=== PATIENT | female | born 1955 | race Caucasian/White ===

== ENCOUNTER 2022-08-21 07:27 | Outpatient (CLI) | payer MEDICARE, SELFPAY ==
[2022-08-21 12:42] LABS: Cholesterol* 229 mg/dL (90-199); Triglycerides* 142 mg/dL (40-149)
[2022-08-21 12:43] LABS: HDL Cholesterol* 75 mg/dL (>=50); LDL Cholesterol Calculated 126 mg/dL (<100)
== END 2022-08-21 07:28 | disposition home or self-care (01) ==
LOC: NFLDREF 07:27
PROVIDERS: PCP Internal Medicine; Visit Provider Internal Medicine
DX: Z13.6 Encounter for screening for cardiovascular disorders (principal)
CPT/HCPCS: 80061

== ENCOUNTER 2022-09-08 12:36 | Outpatient (CLI) | payer MEDICARE, SELFPAY ==
--- NOTE | 2022-09-08 13:00 | CRLHL7_ITS ---
For Patients: As a result of the Century Cures Act, medical imaging exams and procedure reports are released immediately into your electronic medical record. You may view this report before your referring provider. If you have questions, please contact your health care provider. BILATERAL SCREENING MAMMOGRAM WITH COMPUTER-AIDED DETECTION AND TOMOSYNTHESIS TECHNIQUE: CC and MLO views were obtained. These mammographic images have been obtained using full-field digital technique. These mammographic images were interpreted with the benefit of computer-aided detection. Breast Tomosynthesis was used in this interpretation. COMPARISON FILM: 09/06/21, 09/05/20, 07/29/19. FINDINGS: The breasts are heterogeneously dense, which may obscure small masses IMPRESSION: There is no radiographic evidence for malignancy. ASSESSMENT: BI-RADS Category 1: Negative RECOMMENDATION: Routine screening mammogram in 1 year. A lay language report of this examination will be provided to the patient. Christofer Beebe M.D. Diagnostic Radiologist [email or web address] JAYJAY/Dictated by: Christofer Beebe MD @ 09/09/2022 12:02:00 PM (Electronically Signed)
== END 2022-09-08 12:37 | disposition home or self-care (01) ==
LOC: MAMMO 12:37
PROVIDERS: PCP Internal Medicine; Visit Provider Internal Medicine
DX: Z12.31 Encounter for screening mammogram for malignant neoplasm of breast (principal); R92.2 Inconclusive mammogram
CPT/HCPCS: 77063; 77067

== ENCOUNTER 2023-08-24 07:45 | Outpatient (CLI) | payer MEDICARE, SELFPAY | END 2023-08-24 07:46 | disposition home or self-care (01) | LOC: NFLDREF 08-26 07:09 | PROVIDERS: PCP Internal Medicine; Referring Provider Internal Medicine; Visit Provider Internal Medicine | DX: E78.5 Hyperlipidemia, unspecified (principal) | CPT/HCPCS: 80061 ==

== ENCOUNTER 2023-09-09 12:44 | Outpatient (CLI) | payer MEDICARE, SELFPAY ==
--- NOTE | 2023-09-09 13:00 | CRLHL7_ITS ---
For Patients: As a result of the Century Cures Act, medical imaging exams and procedure reports are released immediately into your electronic medical record. You may view this report before your referring provider. If you have questions, please contact your health care provider. BILATERAL SCREENING MAMMOGRAM WITH COMPUTER-AIDED DETECTION AND TOMOSYNTHESIS TECHNIQUE: CC and MLO views were obtained. These mammographic images have been obtained using full-field digital technique. These mammographic images were interpreted with the benefit of computer-aided detection. Breast Tomosynthesis was used in this interpretation. COMPARISON FILM: 09/08/22, 09/06/21, 09/05/20. FINDINGS: The breasts are heterogeneously dense, which may obscure small masses IMPRESSION: There is no radiographic evidence for malignancy. ASSESSMENT: BI-RADS Category 1: Negative RECOMMENDATION: Routine screening mammogram in 1 year. A lay language report of this examination will be provided to the patient. Rosa Hoover M.D. Diagnostic/Breast Radiologist [email or web address] JAYJAY/Dictated by: Rosa Hoover MD @ 09/10/2023 11:19:00 AM (Electronically Signed)
== END 2023-09-09 12:45 | disposition home or self-care (01) ==
PROVIDERS: PCP Internal Medicine; Visit Provider Internal Medicine
DX: Z12.31 Encounter for screening mammogram for malignant neoplasm of breast (principal); R92.2 Inconclusive mammogram
CPT/HCPCS: 77063; 77067

== ENCOUNTER 2024-01-06 12:36 | Outpatient (CLI) | payer MEDICARE, SELFPAY ==
--- OUTSIDE RECORDS SUMMARY | 2024-01-06 12:38 | XMS_ITS | Clinical Summary ---
Author Name Unknown Organization [employer] [facility] [employer] Address [place], [place] [address] Care Team Providers Care Mechanic Recovery Name Role Phone Ana María Mcgee MD Unavailable Arlen Bajwa MD Primary Care Provider [phone]- [phone] Allergies Active Allergy Reactions Criticality Noted Date Comments Rosuvastatin Myalgia 08/15/2013 Atorvastatin Myalgia 05/03/2007 Lisinopril Cough Low 10/21/2010 Side effect, not allergy Sulfamethoxazole-Trimethopri m Hives 05/03/2007 Simvastatin Myalgia 08/15/2013 Medications Medication Sig Dispensed Refills Start Date End Date Status COQ10 SG 100 100 MG-100 UNIT CAPIndications:Myalgia and myositis, unspecified one capsule daily. may increase to twice dailhy 60 12 08/13/2009 Active MAGNESIUM 250 MG TAB 0 08/13/2009 Acti ve CPAPIndications:RAFAL (obstructive sleep apnea) As directed. CPAP, heated humidifier, mask, headgear, filters and tubing. For home use. Pressure: 9 cm Length of Need: 99 1 unit 0 07/15/2010 Active triamcinolone (ARISTOCORT; KENALOG) 0.1 % creamIndications:Conta ct dermatitis and other eczema due to plants (except food) Apply to affected areas BID prn 15 g 6 10/08/2012 Active docusate (COLACE) 100 mg capsule Take 1 capsule by mouth 2 times daily if needed for Constipation. 60 capsule 11/23/2012 Active aspirin enteric coated 81 mg tablet Take 1 tablet by mouth once daily with a meal. 0 08/15/2013 Active Cholecalciferol, Vitamin D3, 2,000 unit tablet Take 3 tablets by mouth once daily. 06/02/2016 Active ibuprofen (ADVIL) 200 mg tablet 3 tablets prn 0 06/02/2016 Active amLODIPine (NORVASC) 10 mg tabletIndications:Hype rtension Take 1 tablet by mouth once daily. 90 tablet 3 06/03/2016 Active pravastatin (PRAVACHOL) 10 mg tabletIndications:Hype rlipidemia, unspecified hyperlipidemia type TAKE ONE TABLET BY MOUTH AT BEDTIME 90 tablet 02/09/2017 Active Active Problems Problem Noted Date Diagnosed Date Rectocele 11/22/2012 Female stress incontinence 10/08/2012 RAFAL (obstructive sleep apnea) 07/16/2010 Elevated blood pressure read ing without diagnosis of hypertension 02/15/2010 Screen for colon cancer 07/02/2009 Overview: Colonoscopy 06/2009 normal repeat in 10 years Vitamin D deficiency 01/01/2009 Other and unspecified hyperlipidemia 05/03/2007 Pure hyperglyceridemia 05/03/2007 Insomnia, unspecified 05/03/2007 Excessive or frequent menstruation 05/03/2007 Immunizations Name Administration Dates Next Due Hepatitis A (Adult) 05/03/2007,09/07/2006 Influenza A (H1N1), Inactivated 07/30/2009 Influenza, IIV3 (Age >=3 years) 07/05/2012,07/22,05/22/2009,07/24/2008 Td (Age >=7 Years) 04/07/2005 Tdap 09/12/2011 Typhoid (injectable) 09/07/2006 Yellow Fever 09/07/2006 Zoster (Zostavax-ZVL, live) 07/18/2013 Family History Medical History Relation Name Comments Heart Disease Brother 1 heart attack a t age 46, alcoholic and smoked Hyperlipidemia Brother 2 Alcohol/Drug Brother 3 Hypertension Brother 4 Hypertension Brother 5 Allergies Daughter Hyperlipidemia Father Other Father parkinsons Arthritis Mother severe RA Hyperlipidemia Mother Hypertension Mother Heart Disease Other 1 Nephew d [place] at age 49 Cancer-breast Other 2 niece with ruth ann ast cancer & cousin Cancer-breast Paternal Grandmother Cancer Sister 1 from leukm [place] Genetic Sister 1 memory issues Cancer Sister 2 ovarian Hyperlipidemia Sister 3 everyone in f [place]- 12 siblings Relation Name Status Comments Brother 1 Brother 2 Brother 3 Brother 4 Brother 5 Daughter Father Mother Other 1 Other 2 Paternal Grandmother Sister 1 Sister 2 Sister 3 Social History Tobacco Use Types Packs/Day Years Used Date Smoking Tobacco: Never Smokeless Tobacco: Never Tobacco Cessation:Counseling Given: Yes Alcohol Use Standard Drinks/Week Comments Yes 0 (1 standard drink = 0.6 oz pur e alcohol) wine once in awhile Sex and Gender Information Value Date Recorded Sex Assigned at Not on file Gender Identity Not on file Sexual Orientation Not on file Obstetrics History Para Term AB IAB SAB Ectopic Multiple Livin g Live Births 3 2 2 1 1 2 Date Outcome GA Total Labor Labor/2nd/3rd Weight Sex Delivery Anes PTL Stephanie A1 A5 Name Cl in SAB Term Term Last Filed Vital Signs Vital Sign Reading Time Taken Comments Blood Pressure 128/82 06/02/2016 4:09 PM CDT Pulse 72 06/02/2016 4:09 PM CDT Temperature 36.8 ??C (98.2 ??F) 09/04/2014 2:50 PM CS T Respiratory Rate 16 06/02/2016 4:09 PM CDT Oxygen Saturation 98% 09/04/2014 2:50 PM ROVING CHANGER Inhaled Oxygen Concentration - - Weight 87.5 kg (193 lb) 06/02/2016 4:09 PM CDT Height 168 cm (5' 6.14) 06/02/2016 4:09 PM CDT Body Mass Index 31.02 06/02/2016 4:09 PM CDT Plan of Treatment Health Maintenance Due Date Last Done Comments Depression screening for age 12+ 1967 Hepatitis C screening for ag e 18-79 1973 Zoster (shingles) series for age 50+ (2 of 3) 09/12/2013 07/18/2013 Mammogram for age 45-75 10/17/2014 10/17/19 14, 09/27/2012, 09/08/2011, Additional history exists BMI (ht and wt on same day) for age 18+ 06/02/2017 06/02/2016 DEXA/DXA scan for age 65+ 2020 08/19/2010 Pneumococcal series for age 65+ (1 of 1 - PCV) 2020 Lipids for age 45-75 11/09/2020 11/09/2015, 11/06/2014, 12/12/2013, Additional history exists Tetanus booster 09/12/2021 09/12/2011, 04/07/2005 COVID-19 vaccine series ( - 2022-24 season) 2023 Influenza for age 65+ 05/22/2024 07/05/2012 , 07/22/2011, 07/30/2009, Additional history exists Colonoscopy through age 75 10/24/202910/24, 10/24/2019, 10/24/2019, Additional history exists Tdap Completed 09/12/2011 Procedures Procedure Name Priority Date/Time Associated Diagnosis Comments COLONOSCOPY SCREENING Routine 10/24/2019 12:00 PM ROVING CHANGER Screening for colon cancer LIPID PANEL W REFLEX MEASURED LDL Routine 11/09/2015 8:10 AM ROVING CHANGER Hyperlipidemia XR MAMMO BILAT SCREEN FFDM (IA) Routine 10/17/2013 10:14 AM ROVING CHANGER Other screening mammogram SCAN-BONE DENSITOMETRY DEXA 08/19/2010 12:00 AM ROVING CHANGER from Last 3 Months or Most Recently Relevant to Health Maintenance Results * COLONOSCOPY SCREENING (10/24/2019 12:00 PM ROVING CHANGER) Tio Jarrell MD GI PROCEDURE ORD * (ABNORMAL) LIPID PANEL W REFLEX MEASURED LDL (11/09/2015 8:10 AM ROVING CHANGER) CHOLESTEROL,TOTAL 230(H) 100 - 199 mg/dL 11/09/2015 8:43 AM ROVING CHANGER [facility] TRIGLYCERIDES 203(H) <150 mg/dL 11/09/2015 8:43 AM ROVING CHANGER [facility] HDL CHOLESTEROL 51 >40 mg/dL 11/09/2015 8:43 AM ROVING CHANGER [facility] NON-HDL CHOLESTEROL 179(H) <145 mg/dl 11/09/2015 8:43 AM ROVING CHANGER [facility] CHOL/HDL RATIO 4.51(H) <4.50 11/09/2015 8:43 AM ROVING CHANGER [facility] LDL CHOLESTEROL 138(H) <=130 mg/dL 11/09/2015 8:43 AM ROVING CHANGER [facility] PATIENT STATUS FASTING 11/09/2015 8:43 AM ROVING CHANGER [facility] Blood specimen (specimen) BLOOD SPECIMEN / Unknown Venipuncture / Unknown 11/09/2015 8:10 AM ROVING CHANGER 11/09/2015 8:10 AM ROVING CHANGER Ana María Mcgee MD CHEMISTRY [facility] [address] [place] [address], * XR MAMMO BILAT SCREEN FFDM (10/17/2013 10:14 AM ROVING CHANGER) Anatomical Region Laterality Modality BREASTS, Breast Left, Breast Right Bilateral Mammography Impressions 10/17/2013 12:19 PM ROVING CHANGER ??There is no radiographic evidence for malignancy. ??Recommend annual mammograms. A lay language report of this examination will be provided to the patient. MAMMOGRAM ASSESSMENT: ??ACR 1 Negative Narrative 10/17/2013 12:19 PM ROVING CHANGER XR MAMMO BILAT SCREEN FFDM [G0202.0] CLINICAL HISTORY: ??This is an asymptomatic 58 y.o. patient. INDICATION FOR EXAM: Mammogram Screening. TECHNIQUE: CC & MLO views were obtained. ??This digital study was evaluated with the assistance of Computer-Aided Detection. ?? COMPARISON FILM: Yes 09/27/12 [facility] 09/08/11 [facility] FINDINGS: ??Mammographically, the breast tissue is heterogeneously dense, which could obscure detection of small masses (approximately 51% - 75% glandular). There are no dominant masses, suspicious micro calcifications or areas of architectural distortion. Procedure Note Brannon Dubon DO - 10/17/2013 XR MAMMO BILAT SCREEN FFDM [G0202.0] CLINICAL HISTORY: This is an asymptomatic 58 y.o. patient. INDICATION FOR EXAM: Mammogram Screening. TECHNIQUE: CC & MLO views were obtained. This digital study was evaluatedwith the assistance of Computer-Aided Detection. COMPARISON FILM: Yes 09/27/12 [facility] 09/08/11 [facility] FINDINGS: Mammographically, the breast tissue is heterogeneously dense,which could obscure detection of small masses (approximately 51% - 75%glandular). There are no dominant masses, suspicious micro calcificationsor areas of architectural distortion. IMPRESSION: There is no radiographic evidence for malignancy. Recommendannual mammograms. A lay language report of this examination will be provided to the patient. MAMMOGRAM ASSESSMENT: ACR 1 Negative Wen Holland MEDICAL ILLUSTRATOR MAMMO * SCAN-BONE DENSITOMETRY DEXA (08/19/2010 12:00 AM ROVING CHANGER) Anatomical Region Laterality Modality Other Narrative Procedure Note Scanner - 08/19/2010 12:00 AM ROVING CHANGER Scanner OTHER from Last 3 Months or Most Recently Relevant to Health Maintenance Advance Directives * Full Code (Latest Code Status on File) Date Activated Date Inactivated Comments 11/22/2012 8:40 AM 11/23/2012 3:49 PM Care Teams Mechanic Recovery Relationship Specialty Start Date End Date Arlen Bajwa MD [address] [facility] [place] [address] PCP - General Internal Medicine 12/25/14 Ana María Mcgee MD Consulting Physician Cardiovascular Disease 08/15/13
--- NOTE | 2024-01-06 13:00 | XR_ITS ---
Patient: DOMEINCA PETERS Facility:?[facility] Patient ID:?[id number] Site Patient ID:?[id number]. Site :?[id number] Study:?DEXA-Bone Density -01/06/2024 2:03:30 PM Ordering Physician:MARIAM Final Report: DXA BONE MINERAL DENSITY STUDY Reason for exam: Asymptomatic menopausal state. Current height (in): 65. Weight (lb): 160. Menopause age: 56. Ethnicity: White. 1. Have you had a previous hip or vertebral fracture? No. 2. Have you had any fractures during your adult life which did not result from significant trauma (e.g., auto accident)? No. 3. Did either of your parents have a hip fracture? No. 4. Do you smoke? No. 5. Have you ever taken Glucocorticoids? No. 6. Do you have rheumatoid arthritis? No. 7. 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 Yes. 8. Do you drink 3 or more alcoholic drinks per day? No. 9. Are you being treated for osteoporosis? No. 10. Have you ever taken any of the following medications: Actonel, Evista, Fosamax, Miacalcin, Reclast, Boniva, Forteo, HRT (i.e., estrogen/hormone therapy), Protelos, Prolia, Vitamin D, Calcium, other ? please specify. ANSWER: Yes, vitamin D and calcium. 11. Do you have any of the following medical conditions: Anorexia or bulimia, asthma or emphysema, end stage renal disease, hyperparathyroidism, any seizure disorders, cancer, inflammatory bowel diseases, hysterectomy, other ? please specify. ANSWER: Yes, hysterectomy. 12. What was your maximum height (inches)? 66. 13. Do you perform weight bearing exercise regularly? Yes. 14. Do you regularly consume dairy products? Yes. 15. Do you drink caffeinated beverages? Yes. 16. At what age did your period start? 12. 17. Are you premenopausal? No. 18. How many full-term pregnancies have you had? 2. 19. Have you ever missed your period for more than 6 months in a row (not including or menopause)? No. TECHNIQUE: Bone mineral density study was performed using the [employer]. FINDINGS: The results of the study expressed as bone mineral density (BMD) are as follows: Lumbar spine L1 to L4: BMD: 0.980 g/cm2. T-score: -0.6. Z-score: 1.4 Neck Left: BMD: 0.822 g/cm2. T-score: -0.2. Z-score: 1.5 Right: BMD: 0.677 g/cm2. T-score: -1.5. Z-score: 0.2 Total Left: BMD: 0.873 g/cm2. T-score: -0.6. Z-score: 0.9 Right: BMD: 0.803 g/cm2. T-score: -1.1. Z-score: 0.3 IMPRESSION: Osteopenia. *Comparison exams done prior to 02/2020 were performed on different unit, [employer]. COMPARISON: Compared with scan of 08/19/2010, the bone mineral density has decreased by 8.3 percent at the spine and decreased by 7.8 percent at the hip. FRAX 10-year Fracture Risk Major Osteoporotic Fracture: 9.8% Hip Fracture: 1.3% Reported Risk Factors: [place] () Neck BMD=0.677, BMI=26.6, secondary osteoporosis Apolonia COSTELLO:miriam D& Transcribed: 12:28 p.m. [email or web address] miriam/Dictated by: Sage Peterson MD @ 01/07/2024 11:16:00 AM Signed by:Bernardino Peterson MD @01/07/2024 4:15:52 PM (Electronic Signature)
== END 2024-01-06 12:37 | disposition home or self-care (01) ==
LOC: RAD 12:36
PROVIDERS: PCP Internal Medicine; Visit Provider Internal Medicine
DX: Z78.0 Asymptomatic menopausal state (principal); M85.88 Other specified disorders of bone density and structure, other site
CPT/HCPCS: 77080

== ENCOUNTER 2024-08-25 07:36 | Outpatient (CLI) | payer MEDICARE, SELFPAY ==
--- OUTSIDE RECORDS SUMMARY | 2024-08-29 02:11 | XMS_ITS | Clinical Summary ---
Author Organization [employer] [facility] [employer] [facility] Address [place], [place] [address] Care Team Providers Care Shingler Name Role Phone Ana María Mcgee MD Unavailable Arlen Bajwa MD Primary Care Provider +1- [phone] Allergies Active Allergy Reactions Criticality Noted Date Comments Rosuvastatin Myalgia 08/15/2013 Atorvastatin Myalgia 05/03/2007 Lisinopril Cough Low 10/21/2010 Side effect, not allergy Sulfamethoxazole-Trimethopri m Hives 05/03/2007 Simvastatin Myalgia 08/15/2013 Medications COQ10 SG 100 100 MG-100 UNIT CAPIndications:Myal antonella and myositis, unspecified one capsule daily. may increase to twice dailhy 60 12 9 Active MAGNESIUM 250 MG TAB 0 9 Active CPAPIndications:RAFAL (obstructive sleep apnea) As directed. CPAP, heated humidifier, mask, headgear, filters and tubing. For home use. Pressure: 9 cm Length of Need: 99 1 unit 0 0 Active triamcinolone (ARISTOCORT; KENALOG) 0.1 % creamIndications:Co ntact dermatitis and other eczema due to plants (except food) Apply to affected areas BID prn 15 g 6 3 Active docusate (COLACE) 100 mg capsule Take 1 capsule by mouth 2 times daily if needed for Constipation . 60 capsule 11/23/2012 3:09 PM SUPERVISOR RESPIRATORY 3 Active aspirin enteric coated 81 mg tablet Take 1 tablet by mouth once daily with a meal. 0 3 Active Cholecalciferol, Vitamin D3, 2,000 unit tablet Take 3 tablets by mouth once daily. 6 Active ibuprofen (ADVIL) 200 mg tablet 3 tablets prn 0 6 Active amLODIPine (NORVASC) 10 mg tabletIndications:H ypertension Take 1 tablet by mouth once daily. 90 tablet 3 6 Active pravastatin (PRAVACHOL) 10 mg tabletIndications:H yperlipidemia, unspecified hyperlipidemia type TAKE ONE TABLET BY MOUTH AT BEDTIME 90 tablet 7 Active Active Problems Problem Noted Date Diagnosed Date Rectocele 11/22/2012 Female stress incontinence 10/08/2012 RAFAL (obstructive sleep apnea) 07/16/2010 Elevated blood pressure read ing without diagnosis of hypertension 02/15/2010 Screen for colon cancer 07/02/2009 Overview (07/02/2009): Colonoscopy 06/2009 normal repeat in 10 years [...] Mother Heart Disease Other 1 Nephew d [place] at age 49 Cancer-breast Other 2 niece [...] pur e alcohol) wine once in awhile Comments No Sex and Gender Information Value Date Recorded Sex Assigned at Not on file Legal Sex Female 5:26 AM SUPERVISOR RESPIRATORY Gender Identity Not on file Sexual Orientation Not on file Obstetrics History Para Term AB IAB SAB Ectopic Multiple Livin g Live Births 3 2 2 1 1 2 Date Outcome GA Total Labor Labor/2nd/3rd Weight Sex Type Anes PTL Stephanie A1 A5 Name Clin SAB Term Term Last Filed Vital Signs Vital Sign Reading Time Taken Comments Blood Pressure 128/82 06/02/2016 4:09 PM CDT Pulse 72 06/02/2016 4:09 PM CDT Temperature 36.8 C (98.2 F) 09/04/2014 2:50 PM SUPERVISOR RESPIRATORY Respiratory Rate 16 06/02/2016 4:09 PM CDT Oxygen Saturation 98% 09/04/2014 2:50 PM SUPERVISOR RESPIRATORY Inhaled Oxygen Concentration - - Weight 87.5 [...] booster 09/12/2021 09/12/2011, 04/07/2005 COVID-19 vaccine series (2023- season) 2024 Influenza for age 65+ 05/22/2024 07/05/2012 , 07/22/2011, 07/30/2009, Additional history exists Colonoscopy through age 75 10/24/202910/24, 10/24/2019, 10/24/2019, Additional history exists Tdap Completed 09/12/2011 Procedures Procedure Name Priority Date/Time Associated Diagnosis Comments COLONOSCOPY SCREENING Routine 10/24/2019 12:00 PM SUPERVISOR RESPIRATORY Screening for colon cancer LIPID PANEL W REFLEX MEASURED LDL Routine 11/09/2015 8:10 AM SUPERVISOR RESPIRATORY Hyperlipidemia XR MAMMO BILAT SCREEN FFDM (IA) Routine 10/17/2013 10:14 AM SUPERVISOR RESPIRATORY Other screening mammogram SCAN-BONE DENSITOMETRY DEXA 08/19/2010 12:00 AM SUPERVISOR RESPIRATORY from Last 3 Months or Most Recently Relevant to Health Maintenance Results * COLONOSCOPY SCREENING (10/24/2019 12:00 PM SUPERVISOR RESPIRATORY) us Tio Jarrell MD GI PROCEDURE ORD Final Re sult * (ABNORMAL) LIPID PANEL W REFLEX MEASURED LDL (11/09/2015 8:10 AM SUPERVISOR RESPIRATORY) CHOLESTEROL,TOTAL 230(H) 100 - 199 mg/dL 11/09/2015 8:43 AM SUPERVISOR RESPIRATORY [facility] TRIGLYCERIDES 203(H) <150 mg/dL 11/09/2015 8:43 AM SUPERVISOR RESPIRATORY [facility] HDL CHOLESTEROL 51 >40 mg/dL 11/09/2015 8:43 AM SUPERVISOR RESPIRATORY [facility] NON-HDL CHOLESTEROL 179(H) <145 mg/dl 11/09/2015 8:43 AM SUPERVISOR RESPIRATORY [facility] CHOL/HDL RATIO 4.51(H) <4.50 11/09/2015 8:43 AM SUPERVISOR RESPIRATORY [facility] LDL CHOLESTEROL 138(H) <=130 mg/dL 11/09/2015 8:43 AM SUPERVISOR RESPIRATORY [facility] PATIENT STATUS FASTING 11/09/2015 8:43 AM SUPERVISOR RESPIRATORY [facility] Blood specimen (specimen) BLOOD SPECIMEN / Unknown Venipuncture / Unknown 11/09/2015 8:10 AM SUPERVISOR RESPIRATORY 11/09/2015 8:10 AM SUPERVISOR RESPIRATORY us Ana María Mcgee MD CHEMISTRY Final Result [facility] [address] [place] [address], * XR MAMMO BILAT SCREEN FFDM (10/17/2013 10:14 AM SUPERVISOR RESPIRATORY) Anatomical Region Laterality Modality BREASTS, Breast Left, Breast Right Bilateral Mammography Impressions 10/17/2013 12:19 PM SUPERVISOR RESPIRATORY There is no radiographic evidence for malignancy. Recommend annual mammograms. A lay language report of this examination will be provided to the patient. MAMMOGRAM ASSESSMENT: ACR 1 Negative Narrative 10/17/2013 12:19 PM SUPERVISOR RESPIRATORY XR MAMMO BILAT SCREEN FFDM [G0202.0] CLINICAL HISTORY: This is an asymptomatic 58 y.o. patient. INDICATION FOR EXAM: Mammogram Screening. TECHNIQUE: CC & MLO views were obtained. This digital study was evaluated with the assistance of Computer-Aided Detection. COMPARISON FILM: Yes 09/27/12 [facility] 09/08/11 [facility] FINDINGS: Mammographically, the breast tissue is heterogeneously dense, which [...] of Computer-Aided Detection. COMPARISON FILM: Yes 09/27/12 [facility] 09/08/11 [facility] FINDINGS: Mammographically, the breast tissue is heterogeneously dense,which could obscure detection of small masses (approximately 51% - 75%glandular). There are no dominant masses, suspicious micro calcificationsor areas of architectural distortion. IMPRESSION: There is no radiographic evidence for malignancy. Recommendannual mammograms. A lay language report of this examination will be provided to the patient. MAMMOGRAM ASSESSMENT: ACR 1 Negative us Wen Holland NP MAMMO Final Result * SCAN-BONE DENSITOMETRY DEXA (08/19/2010 12:00 AM SUPERVISOR RESPIRATORY) Anatomical Region Laterality Modality Other Narrative Procedure Note Scanner - 08/19/2010 12:00 AM SUPERVISOR RESPIRATORY us Scanner OTHER Final Result from Last 3 Months or Most Recently Relevant to Health Maintenance Insurance [facility] Advance Directives * Full Code (Latest Code Status on File) Date Activated Date Inactivated Comments 11/22/2012 8:40 AM 11/23/2012 3:49 PM Care Teams Shingler Relationship Specialty Start Date End Date Arlen Bajwa MD [address] [place] [id number] PCP - General Internal Medicine 12/25/14 Ana María Mcgee MD Consulting Physician Cardiovascular Disease 08/15/13
== END 2024-08-25 07:37 | disposition home or self-care (01) ==
LOC: NFLDREF 08-29 02:08
PROVIDERS: PCP Internal Medicine; Referring Provider Internal Medicine; Visit Provider Internal Medicine
DX: E78.5 Hyperlipidemia, unspecified (principal)
CPT/HCPCS: 80061

== ENCOUNTER 2024-08-30 09:26 | Outpatient (CLI) | payer MEDICARE, SELFPAY ==
--- NOTE | 2024-08-30 09:15 | CRLHL7_ITS ---
For Patients: As a result of the Century Cures Act, medical imaging exams and procedure reports are released immediately into your electronic medical record. You may view this report before your referring provider. If you have questions, please contact your health care provider. CLINICAL INDICATION: Spontaneous rupture of extensor tendon of big toe. COMPARISON IMAGING STUDIES: Radiographs 08/26/2024. TECHNICAL: Noncontrast MRI of the right forefoot. Axial, sagittal and coronal T1, PD and STIR images. 1.5 Dana MR scanner. FINDINGS: OSSEOUS STRUCTURES: No acute fracture. No avascular necrosis or osteomyelitis. JOINT SPACES: Advanced degenerative arthrosis involving the 2nd through 5th TMT articulations with periarticular bone marrow edema. Advanced degenerative arthrosis of the navicular-1st cuneiform articulation. The MTP joints are maintained. Interphalangeal joints are maintained. TENDONS AND MUSCLES: The flexor tendons are intact. The extensor hallucis longus tendon is disrupted at the level of the 1st metatarsal base and 1st TMT joint space level and attenuated 2 at least the navicular level. This is noted on sagittal STIR image number 20 of series 7 with the tendon abnormal over an at least 3 centimeter longitudinal extent. There is associated fluid. The extensor tendons of the other toes are intact. Distal most anterior tibial tendon intact. No significant muscle atrophy. SOFT TISSUES: Plantar aponeurosis at the forefoot level is intact. No Luo`s neuroma. IMPRESSION: 1. Disruption of the extensor hallucis longus tendon at the TMT joint level and extending proximally to at least the navicular level. 2. Advanced degenerative arthrosis changes at the midfoot-forefoot junction and within the midfoot with subchondral cystic change and bone marrow edema. 3. No acute fracture. Dictated by Cm García MD @ 08/31/2024 7:28:26 AM (Electronically Signed)
--- OUTSIDE RECORDS SUMMARY | 2024-08-30 09:30 | XMS_ITS | Clinical Summary ---
Author Organization [facility] Address [place], [place] [address] Care Team Providers Care Dough Mixer Helper Name Role Phone Ana María Mcgee MD Unavailable Arlen Bajwa MD Primary Care Provider [phone] Allergies Active Allergy Reactions Criticality Noted Date [...] Constipation . 60 capsule 11/23/2012 3:09 PM CASEWORKER INTAKE 3 Active aspirin enteric coated 81 mg [...] Mother Heart Disease Other 1 Nephew d [place] at age 49 Cancer-breast Other 2 niece [...] on file Legal Sex Female 5:26 AM CASEWORKER INTAKE Gender Identity Not on file Sexual Orientation [...] 36.8 C (98.2 F) 09/04/2014 2:50 PM CASEWORKER INTAKE Respiratory Rate 16 06/02/2016 4:09 PM CDT Oxygen Saturation 98% 09/04/2014 2:50 PM CASEWORKER INTAKE Inhaled Oxygen Concentration - - Weight 87.5 [...] 09/12/2011, 04/07/2005 COVID-19 vaccine series ( - 2023- season) 2024 Influenza for age 65+ 05/22/2024 07/05/2012 , 07/22/2011, 07/30/2009, Additional history exists Colonoscopy through age 75 10/24/202910/24, 10/24/2019, 10/24/2019, Additional history exists RSV vaccine for adults or (1 - 1-dose 75+ series) 2030 Tdap Completed 09/12/2011 Procedures Procedure Name Priority Date/Time Associated Diagnosis Comments COLONOSCOPY SCREENING Routine 10/24/2019 12:00 PM CASEWORKER INTAKE Screening for colon cancer LIPID PANEL W REFLEX MEASURED LDL Routine 11/09/2015 8:10 AM CASEWORKER INTAKE Hyperlipidemia XR MAMMO BILAT SCREEN FFDM (IA) Routine 10/17/2013 10:14 AM CASEWORKER INTAKE Other screening mammogram SCAN-BONE DENSITOMETRY DEXA 08/19/2010 12:00 AM CASEWORKER INTAKE from Last 3 Months or Most Recently Relevant to Health Maintenance Results * COLONOSCOPY SCREENING (10/24/2019 12:00 PM CASEWORKER INTAKE) us Tio Jarrell MD GI PROCEDURE ORD Final Re sult * (ABNORMAL) LIPID PANEL W REFLEX MEASURED LDL (11/09/2015 8:10 AM CASEWORKER INTAKE) CHOLESTEROL,TOTAL 230(H) 100 - 199 mg/dL 11/09/2015 8:43 AM CASEWORKER INTAKE [facility] TRIGLYCERIDES 203(H) <150 mg/dL 11/09/2015 8:43 AM CASEWORKER INTAKE [facility] HDL CHOLESTEROL 51 >40 mg/dL 11/09/2015 8:43 AM CASEWORKER INTAKE [facility] NON-HDL CHOLESTEROL 179(H) <145 mg/dl 11/09/2015 8:43 AM CASEWORKER INTAKE [facility] CHOL/HDL RATIO 4.51(H) <4.50 11/09/2015 8:43 AM CASEWORKER INTAKE [facility] LDL CHOLESTEROL 138(H) <=130 mg/dL 11/09/2015 8:43 AM CASEWORKER INTAKE [facility] PATIENT STATUS FASTING 11/09/2015 8:43 AM CASEWORKER INTAKE [facility] Blood specimen (specimen) BLOOD SPECIMEN / Unknown Venipuncture / Unknown 11/09/2015 8:10 AM CASEWORKER INTAKE 11/09/2015 8:10 AM CASEWORKER INTAKE us Ana María Mcgee MD CHEMISTRY Final Result [facility] [address] [place] [address], * XR MAMMO BILAT SCREEN FFDM (10/17/2013 10:14 AM CASEWORKER INTAKE) Anatomical Region Laterality Modality BREASTS, Breast Left, Breast Right Bilateral Mammography Impressions 10/17/2013 12:19 PM CASEWORKER INTAKE There is no radiographic evidence for malignancy. Recommend annual mammograms. A lay language report of this examination will be provided to the patient. MAMMOGRAM ASSESSMENT: ACR 1 Negative Narrative 10/17/2013 12:19 PM CASEWORKER INTAKE XR MAMMO BILAT SCREEN FFDM [G0202.0] CLINICAL HISTORY: This is an asymptomatic 58 y.o. patient. INDICATION FOR EXAM: Mammogram Screening. TECHNIQUE: CC & MLO views were obtained. This digital study was evaluated with the assistance of Computer-Aided Detection. COMPARISON FILM: Yes 09/27/12 [facility] 09/08/11 [facility] FINDINGS: Mammographically, the breast tissue is heterogeneously [...] of Computer-Aided Detection. COMPARISON FILM: Yes 09/27/12 [facility] 09/08/11 [facility] FINDINGS: Mammographically, the breast tissue is heterogeneously [...] * SCAN-BONE DENSITOMETRY DEXA (08/19/2010 12:00 AM CASEWORKER INTAKE) Anatomical Region Laterality Modality Other Narrative Procedure Note Scanner - 08/19/2010 12:00 AM CASEWORKER INTAKE us Scanner OTHER Final Result from Last 3 Months or Most Recently Relevant to Health Maintenance Insurance [facility] Advance Directives * Full Code (Latest Code Status on File) Date Activated Date Inactivated Comments 11/22/2012 8:40 AM 11/23/2012 3:49 PM Care Teams Dough Mixer Helper Relationship Specialty Start Date End Date Arlen Bajwa MD [address] [place], [place] [id number] PCP - General Internal Medicine 12/25/14 Ana María Mcgee MD Consulting Physician Cardiovascular Disease 08/15/13
== END 2024-08-30 09:27 | disposition home or self-care (01) ==
LOC: MRI 09:28
PROVIDERS: PCP Internal Medicine; Visit Provider Podiatrist
DX: M66.271 Spontaneous rupture of extensor tendons, right ankle and foot (principal); S93.601A Unspecified sprain of right foot, initial encounter
CPT/HCPCS: 73718

== ENCOUNTER 2024-08-31 08:42 | Day surgery (SDC) | payer MEDICARE, SELFPAY ==
[2024-08-31] VITALS (16 sets, daily range): BP systolic 97–149; BP diastolic 67–85; PULSE 61–76; RESP 14–16; TEMP 36.4–37.2; O2SAT 93–97; BMI 26.7
--- NOTE | 2024-08-31 09:06 | SUR.PREOP ---
Dr. Guevara in with pt
[2024-08-31] MEDS: SODIUM CHLORIDE 0.9 % (FLUSH) 10 ML SYRINGE IVF (09:20)
[2024-08-31] MEDS: 0.9 % SODIUM CHLORIDE 500 ML 500 ML 100 ML IV ×2 (09:25→11:10)
[2024-08-31] MEDS: MIDAZOLAM HCL 1 MG/ML inj IVP (09:26)
[2024-08-31] MEDS: fentaNYL 100 MCG/2 ML inj IVP (09:26)
[2024-08-31] MEDS: BUPIVACAINE 0.25% 30 ML INJECTION (09:45)
[2024-08-31] MEDS: CEFAZOLIN 1 GM inj IVP (09:51)
--- NOTE | 2024-08-31 09:52 | P.NB_ITS ---
Nerve Block Nerve Block Time Seen by Provider: 09:30 Date Seen: 08/31/24 Type of block requested by surgeon for post-operative analgesia: popliteal Side: right Time out performed: Yes Verification of patient name: Yes Verification of date of : Yes Site marking: site marked Name of person performing procedure: Kristian Continuous monitoring Was continuous monitoring of O2 sat, B/P, shelter monitor, recorded every 15 minutes?: Yes Procedure Checklist: sterile prep, needles and gloves Ultrasound guided. Images saved: Yes Medications given in 5ml increments after negative aspiration: Marcaine %: 0.25 mL: 20 Needle gauge: 22 Patient tolerated procedure well: Yes Additional comments: Needle noted adjacent to nerve Block Charges Block Charge (with Pro Fee): Sciatic Nerve Use of Ultrasound Machine for Block: Yes- US Guidance/pain block
--- NOTE | 2024-08-31 09:53 | W.ANESCHARGE ---
Anesthesia Charges Start Date/Time Anesthesia Start Date: 08/31/24 Anesthesia Start Time: 09:36 Stop Date/Time Anesthesia Stop Date: 08/31/24 Anesthesia Stop Time: 11:49
--- NOTE | 2024-08-31 09:54 | SUR.PREOP ---
TIME?OUT:?09 PT/RN/MDA?VERIFICATION?OF?SURGICAL?SITE,?PROCEDURE,?AND?CONSENT OBTAINED?PRIOR?TO?INVASIVE?PROCEDURE. all in agreement.
--- NOTE | 2024-08-31 10:39 | CRLHL7_ITS ---
For Patients: As a result of the Cures Act, medical imaging exams and procedure reports are released immediately into your electronic medical record. You may view this report before your referring provider. If you have questions, please contact your health care provider. Indication: Tendon repair Technique: One fluoroscopic image of the midfoot submitted. Fluoroscopic time 2.4 seconds. IMPRESSION: Fluoroscopic guidance for tendon repair. Dictated by Christofer Beebe MD @ 08/31/2024 11:59:55 AM (Electronically Signed)
--- NOTE | 2024-08-31 11:43 | W.ANESCHARGE ---
Anesthesia Charges Start Date/Time Anesthesia Start Date: 08/31/24 Anesthesia Start Time: 09:36 Stop Date/Time Anesthesia Stop Date: 08/31/24 Anesthesia Stop Time: 11:49
--- NOTE | 2024-08-31 14:03 | SUR.PHASEII ---
pt tolerated yogurt and water. Denies pain. Right foot dressing c/d/i, elevated on 2 pillows, ice applied behind the knee. Reviewed d/c instructions with pt and . All questions answered. paper script for knee walker sent with pt. PT evaluation for walker before D/C home.
--- NOTE | 2024-08-31 14:09 | SUR.PHASEII ---
PT here to see pt.
--- NOTE | 2024-08-31 14:28 | SUR.PHASEII ---
Pt evaluated pt. Wheelchair out to car with .
--- NOTE | 2024-09-02 13:34 | W.PM.PODPROC ---
Date of Procedure: 08/31/24 Surgeon: Claudine Guevara DPM Co-Surgeon: Toan Maldonado DPM Pre-op Diagnosis: 1. Extensor hallucis longus tendon rupture, right foot 2. Hyperostosis 1st metatarsal base, right foot 3. Hyperostosis 2nd metatarsal base, right foot 4. Hyperostosis 3rd metatarsal base, right foot 5. Hyperostosis 1st cuneiform, right foot 6. Hyperostosis 2nd cuneiform, right foot 7. Hyperostosis 3rd cuneiform, right foot 8. Hyperostosis navicular, right foot Post-op Diagnosis: 1. Extensor hallucis longus tendon rupture, right foot 2. Hyperostosis 1st metatarsal base, right foot 3. Hyperostosis 2nd metatarsal base, right foot 4. Hyperostosis 3rd metatarsal base, right foot 5. Hyperostosis 1st cuneiform, right foot 6. Hyperostosis 2nd cuneiform, right foot 7. Hyperostosis 3rd cuneiform, right foot 8. Hyperostosis navicular, right foot Type of Procedure: 1. Extensor hallucis longus tendon rupture repair, right foot 2. Hyperostosis resection 1st metatarsal base, right foot 3. Hyperostosis resection 2nd metatarsal base, right foot 4. Hyperostosis resection 3rd metatarsal base, right foot 5. Hyperostosis resection 1st cuneiform, right foot 6. Hyperostosis resection 2nd cuneiform, right foot 7. Hyperostosis resection 3rd cuneiform, right foot 8. Hyperostosis resection navicular, right foot Procedure Description: The patient was identified prior to being brought into the operating room using their name and date of as identifiers. The intended surgical care plan was again reviewed in detail with the patient as well as the rationale for the surgery, the most common risks, complications, and expected recovery course. The patient was given the opportunity to ask questions which were answered to the best of our ability. The patient ultimately voiced no questions or concerns and agreed to proceed forward with the surgery as planned. Under mild sedation the patient was brought from the pre-operative holding area to the operating room and placed on the operating table in a supine position. A time out and briefing were performed per operating room protocol to confirm the correct patient, procedure and location. A well padded pneumatic tourniquet was then placed on the operative thigh. The operative lower extremity was then scrubbed, prepped and draped in the normal sterile fashion. The operative lower extremity was then elevated for exsanguination and the tourniquet was inflated to 325 mmHg. A lateral incision was placed over the midfoot from navicular to the 2nd metatarsal base. The incision was then carried through the subcutaneous tissues with care taken to identify, retract, and protect all vital structures and coagulate any bleeders as necessary. The EHL tendon had a complete rupture with a 3 cm gap spanning from the base of the 1st tarsometatarsal joint to the navicular. The diseased portion of the tendon stumps were then transected and removed. Next, a midfoot exostectomy was performed to address the sharp underlying osseous prominences over the first through third tarsometatarsal joints (TMTJ) and the naviculocuneiform joint (NCJ) 1-3. The periosteum was carefully reflected to expose the underlying bone and using a saw, osteotome, rongure. The bone surfaces were smoothed with a hand rasp, and any bony irregularities were corrected to alleviate any impingement or discomfort. Next, using the Krackow suture technique, the EHL tendon ends were mobilized and reapproximated using #2 Fiberwire and reinforced with absorbable sutures with the hallux held in maximum dorsiflexion. The tendon repair was tested for tension and integrity, ensuring full function was restored. The surgical site copiously irrigated with sterile saline. The deep tissues approximated with multiple buried absorbable sutures. The skin edges were then approximated with non-absorbable sutures. A postoperative dressing of xeroform, fluff sponges, ABDs, webril, Kerlix and an jones bandage was applied to the patient's operative lower extremity. A posterior splint was then applied to the patient's operative extremity. The patient appeared to tolerate both the procedure and anesthesia well. The patient was transferred from the operating room to the post anesthesia care unit with vital signs stable and vascular status intact to the operative lower extremity. All sponge and instrument counts were correct at the completion of the surgery as well as prior to closure of deep tissue and skin. Anesthesia: GETA Hemostasis: thigh (67 minutes) Estimated blood loss (mL): 15 Implants: none Specimens: none sent Disposition: same day
== END 2024-08-31 14:28 | disposition home or self-care (01) ==
LOC: OR 08:43
PROVIDERS: PCP Internal Medicine; Visit Provider Podiatrist
PROC: (CPT 27675; principal; 2024-08-31 09:45)
DX: S96.111A Strain of muscle and tendon of long extensor muscle of toe at ankle and foot level, right foot, initial encounter (principal); M85.871 Other specified disorders of bone density and structure, right ankle and foot; G89.18 Other acute postprocedural pain
CPT/HCPCS: 28208; 28104 ×2; 28100; 01470; 64445; 73620; 76000; 76942; 97116; 97161; J0665; J0690; J1100; J2250; J2405; J2704; J2710; J3010; J7030

== ENCOUNTER 2025-01-09 12:50 | Outpatient (CLI) | payer MEDICARE, SELFPAY ==
--- NOTE | 2025-01-09 13:00 | CRLHL7_ITS ---
For Patients: As a result of the Century Cures Act, medical imaging exams and procedure reports are released immediately into your electronic medical record. You may view this report before your referring provider. If you have questions, please contact your health care provider. INDICATION: BILATERAL SCREENING MAMMOGRAM, ASYMPTOMATIC 69 YEAR OLD FEMALE COMPARISON: 09/09/23, 09/08/22, 09/06/21 TECHNIQUE: CC and MLO views were obtained. These mammographic images have been obtained using full-field digital technique. These mammographic images were interpreted with the benefit of computer aided detection and tomosynthesis. BREAST COMPOSITION: The breasts are heterogeneously dense, which may obscure small masses. FINDINGS: No suspicious findings. ASSESSMENT: BI-RADS 1 Negative RECOMMENDATION: Annual screening mammogram. A lay language report of this examination will be provided to the patient. Dictated by: Christofer Beebe MD @ 01/10/2025 11:10:33 (Electronically Signed)
== END 2025-01-09 12:51 | disposition home or self-care (01) ==
LOC: MAMMO 12:50
PROVIDERS: PCP Internal Medicine; Visit Provider Internal Medicine
DX: Z12.31 Encounter for screening mammogram for malignant neoplasm of breast (principal); R92.333 Mammographic heterogeneous density, bilateral breasts
CPT/HCPCS: 77063; 77067

== ENCOUNTER 2025-03-23 08:52 | Outpatient (CLI) | payer MEDICARE, SELFPAY ==
--- NOTE | 2025-03-23 09:15 | CRLHL7_ITS ---
For Patients: As a result of the Century Cures Act, medical imaging exams and procedure reports are released immediately into your electronic medical record. You may view this report before your referring provider. If you have questions, please contact your health care provider. Indication: Right hip pain Comparison: 03/14/2025 Procedure : Informed consent was obtained. The site was marked. Time-out was performed. The skin of the right hip was cleansed with ChloraPrep. A sterile drape was placed. 8 cc of 1 percent lidocaine was administered for superficial anesthesia. Subsequently a 22 gauge spinal needle was introduced into the right hip joint under intermittent fluoroscopic guidance. 7 cc of 1 percent lidocaine and 2 cc of 40 milligram/cc Depo-Medrol then placed into the right hip joint. The needle was removed and hemostasis achieved with direct pressure. A dressing was placed. The patient tolerated the procedure well without immediate complication. Total fluoroscopy time 12 seconds. Impression: Successful fluoroscopically guided right hip injection with 80 milligrams of Depo-Medrol. Dictated by Christofer Beebe MD @ 03/23/2025 3:55:57 PM (Electronically Signed)
== END 2025-03-23 08:53 | disposition home or self-care (01) ==
LOC: RAD 08:52
PROVIDERS: PCP Internal Medicine; Visit Provider Orthopaedic Surgery Sports Medicine
DX: M25.551 Pain in right hip (principal); M16.11 Unilateral primary osteoarthritis, right hip; M76.891 Other specified enthesopathies of right lower limb, excluding foot
CPT/HCPCS: 20610; 77002

== ENCOUNTER 2025-05-09 14:30 | Outpatient (RCR) | payer MEDICARE, SELFPAY ==
--- NOTE | 2025-03-30 16:14 | PT.OPEX ---
PT [facility] Outpatient Eval PT [facility] Outpatient Eval Start: 03/30/25 09:30 Freq: Status: Active Protocol: Document 03/30/25 09:30 HEMANT (Rec: 03/30/25 09:44 HEMANT [id number]) E-signed By Pauly Payton DPT Physical Therapy Outpatient Evaluation Insurance Information Recert Due Date 06/28/25 Insurance Name Medicare B,[employer] Medical Diagnosis R hip trochanteric bursitis R hip OA R hip abd tendinitis Treating Diagnosis R hip/groin pain, core/hip/glut weakness with pelvis instability following R foot injury/surgery and use of walking boot, limping/antalgic gait, limited tolerance for extended standing/walking/activity Subjective Subjective Patient reports chronic R hip pain, lateral pain and groin pain for the last several months. She reports injury to her R foot with R foot surgery back in Sep. She had foot surgery Aug 2024, was NWB for about a month, and then walking with CAM walking boot until sometime in Oct. Patient states the walking boot threw off her walking and she started having R hip pain. The R hip pain has continued over the last several months. Initially pain was R lateral hip and then progressed to R groin as well. Patient had follow up with ortho MD. Reports having an injection to R lateral hip March 14 and R groin region March 23. She reports about 80% improvement after the injections. States she has been walking better and able to do more activities at home, cleaning out a closet the other day that she wasn't able to do prior to the injections. Pain range 1-5/10. She is using advil/tylenol 4-5x/ week. She has been playing pickle ball regularly but with some pain and more limited with her mobility. 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 Pain range 1-5/10. Patient is using advil/tylenol as needed, usually 4-5x/ week. She had injection to R lateral hip March 14 and R groin region March 23. Patient reports about 80% improvement after the injections. She reports walking with a walking boot for an extended time while healing from R foot surgery earlier this year - this threw off her walking and caused flare up of R hip pain. Pelvic alignment assessed and rotation noted. Able to correct with MET this session. Initiated exercises for HEP to help with alignment, stabilization, strengthening. Patient would benefit from skilled PT for pain/sx management, core/hip/glut/LE strengthening, improved pelvic stability, improved gait, and establishment of HEP. Plan of Care Rehabilitation Good Potential Physical Therapy 1. Decrease R hip/groin pain to less than/equal to 3/ Goals 10 with daily/housework/workout activities and with the progression of PT activities over the next 4-6 weeks. 2. Patient will be educated on posture/body mechanics and pain management strategies over the next 4-6 weeks for decreased stress to LB/pelvis/SI/hip and improved pelvic stability. 3. Improve core/hip/glut/LE strength and posture over the next 8-10 weeks for improved posture/body mechanics, decreased stress to R hip/pelvis/SI/groin, improved pelvic stability, improved gait, and improved tolerance for extended sitting/standing/walking/workout activities without flare up of pain. 4. Patient will be I with HEP within 10 weeks for progression toward above goals, ongoing self management of pain/sx, ongoing self improvements in core/hip/glut/LE strength, posture/body mechanics, pelvic stability, and for return to PLF with daily/work/leisure activities without flare up of pain. Coordination/ Referral Source Communication With Treatment Plan/ Manual Therapy,Therapeutic Exercises Direct Interventions Frequency/Duration 1x/week Patient Will Be Completion of LTG(s),Skills Plateau,Independent w/HEP, Discharged From Independently Progressing Therapy Evaluation Billing Untimed Code 25 Treatment Minutes Complexity Moderate Certification Information Initial 03/30/25 Certification Date Ending Certification 06/28/25 Date Provider Signature Yes Required Provider Signature POC & Medical Necessity Shows Agreement With Physician NPI Number Write NPI# Here Physician Comment/ : Change Physician Signature Please Sign/Date Here & Date Requested
== END 2025-09-06 23:59 | disposition home or self-care (01) ==
PROVIDERS: PCP Internal Medicine; Visit Provider Orthopaedic Surgery Sports Medicine
DX: M70.61 Trochanteric bursitis, right hip (principal); M76.891 Other specified enthesopathies of right lower limb, excluding foot; M16.11 Unilateral primary osteoarthritis, right hip; Z51.89 Encounter for other specified aftercare
CPT/HCPCS: 97110; 97140; 97162

== ENCOUNTER 2025-08-29 07:30 | Outpatient (CLI) | payer MEDICARE, SELFPAY | END 2025-08-29 07:31 | disposition home or self-care (01) | LOC: NFLDREF 09-03 20:28 | PROVIDERS: PCP Internal Medicine; Referring Provider Internal Medicine; Visit Provider Internal Medicine | DX: E78.5 Hyperlipidemia, unspecified (principal); M85.80 Other specified disorders of bone density and structure, unspecified site | CPT/HCPCS: 80061; 82306 ==

== ENCOUNTER 2025-09-07 13:41 | Outpatient (CLI) | payer MEDICARE, SELFPAY ==
--- NOTE | 2025-09-07 14:00 | CRLHL7_ITS ---
For Patients: As a result of the Century Cures Act, medical imaging exams and procedure reports are released immediately into your electronic medical record. You may view this report before your referring provider. If you have questions, please contact your health care provider. Indication: Follow-up abnormality seen on calcium scoring Technique: Routine noncontrast CT chest Please note that all CT scans at this facility use dose modulation, iterative reconstruction, and/or weight-based dosing when appropriate to reduce radiation dose to as low as reasonably achievable. Comparison: 03/12/2015 Findings: The visualized thyroid is normal. Benign cyst within the left hepatic lobe measures 2.2 cm. Atherosclerotic changes in the aorta. No enlarged lymph nodes in the mediastinum, sheldon or axilla. Mild biapical pleural-parenchymal scarring. No infiltrate or edema. No effusion or pneumothorax. Mild scarring at the anterior right lung base. Faint scarring within the superior segment of the left lower lobe. No suspicious pulmonary nodule. No fracture or intrinsic osseous lesion. Faint nodular density within the right lower lobe measures 3.5 millimeters, 3/42. Calcified nodule within the right lower lobe measures 2 millimeters, 3/43. Impression: Small right-sided pulmonary nodules. No further follow-up indicated. No suspicious findings are present. Please note that all CT scans at this facility use dose modulation, iterative reconstruction, and/or weight-based dosing when appropriate to reduce radiation dose to as low as reasonably achievable. Dictated by Christofer Beebe MD @ 09/07/2025 3:45:22 PM (Electronically Signed)
== END 2025-09-07 13:42 | disposition home or self-care (01) ==
LOC: CT 13:41
PROVIDERS: PCP Internal Medicine; Visit Provider Internal Medicine
DX: R91.8 Other nonspecific abnormal finding of lung field (principal)
CPT/HCPCS: 71250